=== PATIENT | female | born 1965 | race Caucasian/White ===

== ENCOUNTER → 2020-06-11 | Day surgery (SDC) | payer OTHER ==
[~2020-06-11] VITALS: Ht 175.3 cm; Wt 117.9 kg
[~2020-06-11] MED LIST: ALDACTONE25 MG PO; ASPIRIN EC81 MG PO; BUMEX1 MG PO; COZAAR 100MG T100 MG PO; FARXIGA5 MG PO; PERCOCET 7.5/321 TAB PO; PRAVASTATIN SOD10 MG PO; TYLENOL #31 EACH PO; VITAMIN B122500 MCG PO; VITAMIN D3100 MCG PO
[2020-06-11 07:29] LABS: HCT 40.1 % (37.0-47.0); HGB 13.1 g/dl (12.5-16.0); MCH 28.4 pg (25.0-31.0); MCHC 32.7 g/dL (32.0-36.0); MCV 86.8 fL (78.0-100.0); MPV 8.9 fL (6.0-9.5); RBC 4.62 M/uL (4.20-5.40); RDW 13.7 % (11.5-14.0)
[2020-06-11 08:02] LABS: BUN/CREAT RATIO (CALC) 31.9 RATIO; CREATININE 0.91 mg/dL (0.51-0.95); POTASSIUM 4.5 mmol/L (3.5-5.1)
== END | disposition home or self-care (01) ==
LOC: FAS 06:22
PROVIDERS: Anesthesiology; Legal Medicine
DX: M75.121 Complete rotator cuff tear or rupture of right shoulder, not specified as traumatic (principal); M19.011 Primary osteoarthritis, right shoulder; G89.18 Other acute postprocedural pain; E11.9 Type 2 diabetes mellitus without complications; I10 Essential (primary) hypertension; E78.5 Hyperlipidemia, unspecified; E66.01 Morbid (severe) obesity due to excess calories; Z68.38 Body mass index [BMI] 38.0-38.9, adult; Z79.82 Long term (current) use of aspirin; Z79.899 Other long term (current) drug therapy; Z96.653 Presence of artificial knee joint, bilateral
CPT/HCPCS: 36415; 80048; C1713; J0171; J0690; J2250; J2704; J2795; J3010; J7120